=== PATIENT | female | born 2005 | race Caucasian/White ===

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

== ENCOUNTER 2025-01-01 13:47 | Emergency (ER) | payer MEDICAID, SELFPAY ==
[2025-01-01 13:48] VITALS: BP 136/87; PULSE 123; RESP 18; TEMP 36.7; O2SAT 100; BMI 18.3
[2025-01-01 13:58] VITALS: BP 136/87; PULSE 145; RESP 16; O2SAT 97
--- NOTE | 2025-01-01 13:58 | ED_ITS ---
Discharge Plan Disposition Patient Disposition: Home, Self-Care Condition: Good Prescriptions Prescriptions: New amoxicillin-pot clavulanate 875-125 mg tablet 1 tab PO Q12H Qty: 20 0RF Referrals Follow up/Referrals: Provider,Referral, MD [Primary Care Provider] - See instructions Activity Restrictions/Add. Instructions Additional Instructions/Restrictions: As we discussed, your ultrasound that I performed showed a abscess of your tooth that is probably due to the cavity of your tooth on that same side. We talked about potentially getting a CT scan or further workup but after shared decision making we proceeded with an incision and drainage. I was able to get some pus from the area but the drainage was likely incomplete. That should help start to resolve your symptoms, and I prescribed antibiotics as well for you to take. Please follow-up with a dentist as soon as you can as you will likely need further intervention on that tooth, and return with any new or worsening symptoms, particularly if you have worsening swelling, difficulty swallowing, difficulty breathing, pain under your chin area, swelling under your chin area, fever, or any other new or worsening symptoms Clinical Impressions Clinical Impression: Abscess, dental Print Language Print Language: Latvian Discharge ED Provider: Andrew Alvarenga General Adult HPI General Chief complaint: Allergic Reaction Stated complaint: Left jaw swollen,possible allergic reaction Time Seen by Provider: 01/01/25 13:58 History of Present Illness HPI narrative: Patient presents for evaluation of facial swelling, gradual in onset, starting over the past 48 hours, constant, stable in course, no associated pain. Patient reports she has had similar symptoms before in the past associated with eating mushrooms. She does describe dental carry on the ipsilateral side. No previous therapies. No dysphonia, no globus sensation, no difficulty swallowing, no fevers or chills, no wheals or other rash. No nausea or vomiting. No allergies or daily medications or blood thinner usage. Please note that above description of symptoms, in this electronic medical record under categorization of recalled from ER triage doctor by RN are reflective of an initial nursing assessment, however, is not reflective of my full history and physical exam that was personally taken and clarified. Consequentially, this preceding description of symptoms, which may include the patient's categorized chief complaint in the EMR, do not reflect my personal clinical impression, and the ultimate description of history of present illness and patient stated complaints should be deferred to this section of the note. Unless stated otherwise or congruent with this section of the note, additional signs, symptoms, or incongruence should be interpreted as inaccurate with my clinical impression. Related Data Previous Rx's ?Medication ?Instructions ?Recorded amoxicillin 875 mg-potassium 1 tab PO Q12H #20 tabs 01/01/25 clavulanate 125 mg tablet Allergies Allergy/AdvReac Type Severity Reaction Status Date / Time No Known Allergies Allergy Verified 10/17/24 15:26 [facility] Disclaimer: The information contained in this section may have been updated after the patient was seen, as this information can be updated by other users. Medical History Breech presentation SGA (small for gestational age), , affecting care of mother, antepartum Surgical History No significant past surgical history Family History Other No significant family history Social History Smoking Status: Never smoker alcohol intake: never substance use type: denies use and marijuana (she states that she used to do this; none since at [facility] [place]) current occupational status: unemployed Travel in the last 8 weeks: None Have you lived/traveled outside [place] in past 30 days?: No Contact w/someone who lives/traveled outside US past 30 days?: No Exposure to someone with infectious disease in past 14 days?: No Do you have a fever (greater than 100.4 F or 38 C)?: No Have you tested positive for COVID-19: No Exposed to someone with COVID-19 in past 14 days?: No Do you have a sore throat?: No Do you have a cough?: No Do you have any weakness?: No Do you have any diarrhea?: No Are you experiencing any unusual bleeding?: No Do you have any muscle aches/pain?: No Do you have any abdominal pain?: No Are you experiencing loss of taste or smell?: No Other Medical History Have you received the Flu Vaccine for this season: No Have you received the Pneumonia Vaccine: No ROS Obtained: Yes other As per HPI Physical Exam General General appearance: alert and in no apparent distress Head Head exam: atraumatic and normocephalic Eye Eye exam: Present normal appearance Neck Neck exam: Present normal inspection Chest Chest inspection: Present normal inspection and symmetric chest wall rise Respiratory Respiratory exam: Present normal lung sounds bilaterally; Absent respiratory distress Cardiovascular Cardiovascular exam: Present regular rate and normal rhythm Abdominal Exam Abdominal exam: Present soft Neurological Exam Neurological exam: Present alert and oriented X3 Psychiatric Psychiatric exam: Present normal affect and normal mood Skin Skin exam: Present warm and dry Other Other exam information: Dental carry of mandibular molar, lateral area of fluctuance and mild tenderness to palpation. No wheals, no stridor, no submandibular swelling or tenderness, no crepitus. Medical Decision Making Medical Records Medical records reviewed: Yes I reviewed the patient's medical records. Screening: Per USPSTF and CDC recommendations, given the prevalence of disease in our region, it is our hospital?s policy to screen for HIV and viral Hepatitis for all patients aged 18 and over and those with ongoing risk factors. Russ Inquiry Pt receiving controlled substance: No Vital Signs: 01/01/25 13:48 01/01/25 13:58 01/01/25 14:00 Temperature 98.1 F Temperature Source Oral Pulse Rate 145 H 131 H Pulse Rate [Right] 123 H Respiratory Rate 18 16 21 Blood Pressure 136/87 145/84 H Blood Pressure [Right Arm] 136/87 Blood Pressure Mean [Right Arm] 103 02 Sat by Pulse Oximetry 100 97 100 Oxygen Delivery Method Room Air Room Air 01/01/25 14:45 01/01/25 15:00 01/01/25 15:22 Temperature 98.5 F Temperature Source Pulse Rate 119 H 100 H 100 H Pulse Rate [Right] Respiratory Rate 24 24 16 Blood Pressure 119/96 H 129/93 H 115/81 Blood Pressure [Right Arm] Blood Pressure Mean [Right Arm] 02 Sat by Pulse Oximetry 100 99 Oxygen Delivery Method Room Air Room Air Orders (Tests/Meds): ED MEDICATIONS Discontinued Medications Generic Name Dose Route Start Last Admin Trade Name Freq PRN Reason Stop Dose Admin Lidocaine HCl 15 ml 01/01/25 14:26 01/01/25 14:27 Lidocaine 2% Viscous Concha 15ml Udc PO 01/01/25 14:27 15 ml ONCE ONE Administration Lorazepam 0.5 mg 01/01/25 14:23 01/01/25 14:25 Lorazepam 0.5mg Tablet PO 01/01/25 14:24 0.5 mg ONCE ONE Administration Lorazepam 0.5 mg 01/01/25 14:23 01/01/25 14:24 Lorazepam 0.5mg Tablet PO 01/01/25 14:24 Not Given ONCE ONE ORDERS Category Date Time Status POCUS Point of Care (ER Only) Stat Exams 01/01/25 14:14 Completed Medical Decision Narrative: Patient with history and exam per above presenting for evaluation of facial swelling, dental complaint Diagnoses considered include periapical abscess, peritonsillar abscess, symptoms are most consistent with periapical abscess as visualized on [id number] ultrasound. Patient exhibits no evidence of Nemesio's angina nor systemic toxicity. Although initially triaged as allergic reaction I think this is much less likely. After shared decision making including discussion of no treatment, delayed treatment, further workup such as CT scan, including risks and benefits of all of these options, patient elects to proceed with drainage of suspected periapical abscess. Verbal consent was obtained. Patient was administered lorazepam and tolerated well, she was also locally anesthetized. Procedure was performed but terminated early due to difficulty tolerating. I was able to express a small amount of purulence from site with stab incision. She will be prescribed course of antibiotics and follow-up very closely with dentist. It was emphasized that treatment in the emergency department at this time was not definitive and she should monitor very closely for any new or worsening symptoms such as worsening facial swelling, submandibular swelling, worsening pain, difficulty breathing, or other such concerning or new or worsening symptoms. She expressed an understanding as did friend at bedside. She is stable for discharge at this time Procedures Abscess I/D Site: other (Dental) Side (if applicable): left Local Anesthetic: other anesthetic (Topical dental ball) Technique: incised with #11 blade Amount of fluid expressed (mL): 0.5 Irrigation: No Packing used?: none Complications: pain Critical Care Critical Care Time Critical Care Time: No
[2025-01-01 14:00] VITALS: BP 145/84; PULSE 131; RESP 21; O2SAT 100
--- NOTE | 2025-01-01 14:13 | ECG_ITS ---
APPROVED REPORT Exam: Resting ECG HR:128 bpm ECG Measurements Heart Rate 128 AXES NJ 131 P 72 QRSd 86 QRS 99 QT 334 T 3 QTc 410 Conclusion SINUS TACHYCARDIA BORDERLINE RIGHT AXIS DEVIATION [QRS AXIS > 90] NONSPECIFIC ST & T-WAVE ABNORMALITY ABNORMAL RHYTHM ECG No STEMI Electronically signed by : CHARLOTTE LUNDBERG, 01/04/2025 06:08:09
[2025-01-01] MEDS: LORazepam 0.5MG TABLET 0.5 MG PO (14:25)
[2025-01-01] MEDS: LIDOCAINE 2% VISCOUS SOL 15ML UDC 15 ML PO (14:27)
--- NOTE | 2025-01-01 14:28 | PC.NURSE ---
dental balls made; pt has one sitting in her cheek at this time
[2025-01-01 14:45] VITALS: BP 119/96; PULSE 119; RESP 24; O2SAT 100
[2025-01-01 15:00] VITALS: BP 129/93; PULSE 100; RESP 24; O2SAT 99
[2025-01-01 15:22] VITALS: BP 115/81; PULSE 100; RESP 16; TEMP 36.9; O2SAT 98
== END 2025-01-01 15:25 | disposition home or self-care (01) ==
PROVIDERS: Emergency Provider Emergency Medicine
DX: K04.7 Periapical abscess without sinus (principal); R22.0 Localized swelling, mass and lump, head
CPT/HCPCS: 41800; 93005; 99283